=== PATIENT | male | born 1960 | race Caucasian/White ===

== ENCOUNTER 2021-11-11 02:04 | Inpatient (IN) ==
[2021-11-11] MEDS ORDERED: Cefepime HCl 2,000 MG in 0.9 % Sodium Chloride Mini Bag 100 ML IVPB ONE (02:52)
[2021-11-11] MEDS ORDERED: Ipratropium/Albuterol Neb 3 ML IH ONE (02:54)
[2021-11-11] MEDS ORDERED: Ringers Solution, Lactated 1,000 ML IVC ONE ×2 (02:56→03:48)
[2021-11-11 02:57] LABS: Basophils % 0.3 %; Eosinophils % 0.1 %; Hematocrit 47.1 % (37.5-50.1); Hemoglobin 15.2 g/dL (12.9-16.9); Immature Granulocytes % 0.5 % (0-4); Mean Corpuscular HGB Conc 32.3 g/dL (31.6-35.5); Mean Corpuscular Hemoglobin 27.2 pg (28.0-33.3); Mean Corpuscular Volume 84.4 fL (83.0-100.0); Mean Platelet Volume 8.9 fL (9.4-12.4); Monocytes # 0.9 K/mcL (0.0-1.3); Monocytes % 6.7 %; Neutrophils # 10.9 K/mcL (1.6-8.9); Platelet Count 447 K/mcL (140-400); Red Blood Count 5.58 M/mcL (4.19-5.50); Red Cell Distribution Width 14.2 % (11.5-14.5); Segmented Neutrophils % 84.4 %; White Blood Count 12.9 K/mcL (4.3-11.1)
[2021-11-11] MEDS ORDERED: Vancomycin 1,250 MG/262.5 ML IV.SOLN IVPB ONE (03:00)
[2021-11-11] MEDS ORDERED: Vancomycin (wt based) 1,000 MG VIAL IV ONE (03:00)
[2021-11-11] MEDS ORDERED: Levalbuterol Neb 1.25 MG/3 ML ONE (03:46)
[2021-11-11] MEDS: Levalbuterol Neb 1.25 MG/3 ML IH ONE (03:55)
[2021-11-11 04:00] LABS: BUN/Creatinine Ratio 24 (6-26); Blood Urea Nitrogen 30 mg/dL (8-23); Calcium 9.6 mg/dL (8.6-10.3); Carbon Dioxide 24 mEq/L (23-29); Chloride 93 mEq/L (98-107); Glucose 134 mg/dL (70-105); Osmolality,Calculated 284 (280-300); Potassium 3.7 mEq/L (3.5-5.1); Sodium 133 mEq/L (136-145); Troponin I 0.19 ng/mL (< 0.04); eGFR For African Americans > 60 (> 60); eGFR For Non-African Americans 58 (> 60)
[2021-11-11 04:00] LABS: VBG HCO3 27 mEq/L (21-27); VBG PCO2 46 mmHg (41-51); VBG PH 7.38 pH Units (7.32-7.42); VBG PO2 69 mmHg (25-50)
[2021-11-11] MEDS ORDERED: Isovue-370 500 ML BOTTLE IVP ONE (04:09)
[2021-11-11] MEDS ORDERED: *HR* Heparin 5,000 UNIT/ML VIAL IVP ONE (04:27)
[2021-11-11] MEDS ORDERED: *HR* Heparin 5,000 UNIT/ML VIAL IVP PRN ×2 (04:27)
[2021-11-11] MEDS ORDERED: Aspirin 325 MG TABLET PO ONE (04:27)
[2021-11-11 04:39] LABS: Influenza A PCR Negative (Negative); Influenza B PCR Negative (Negative); Resp. Syncytial Virus PCR Negative (Negative)
[2021-11-11 04:43] LABS: SARS-CoV-2 by PCR (In House) Negative (Negative)
[2021-11-11] MEDS: Heparin 25,000UNIT/250ML 1/2NS 25,000 UNIT/250 ML IV.SOLN IVC SCH (04:53)
[2021-11-11] MEDS ORDERED: Naloxone 0.4 MG/ML INJ IVP PRN (05:22)
[2021-11-11] MEDS ORDERED: Melatonin 3 MG TABLET PO PRN (05:22)
[2021-11-11] MEDS ORDERED: methylPREDNISolone 125 MG/2 ML VIAL IVP ONE ×2 (05:25→09:22)
[2021-11-11] MEDS ORDERED: *HR* LORazepam 2 MG/ML VIAL IVP ONE (05:33)
[2021-11-11] MEDS ORDERED: Dextrose 4 GM Chewable Tablets PO PRN ×2 (05:35)
[2021-11-11] MEDS ORDERED: D5% in Water 1,000 ML IVC PRN (05:35)
[2021-11-11] MEDS ORDERED: *HR* Dextrose 50 % in Water (Syg) 50 ML SYRINGE IVP PRN (05:35)
[2021-11-11] MEDS ORDERED: Ondansetron 4 MG/2 ML VIAL IVP PRN (06:00)
[2021-11-11] MEDS: Levalbuterol Neb 1.25 MG/3 ML IH SCH ×4 (06:23→20:25)
[2021-11-11] MEDS ORDERED: Perflutren Lipid Microsphere 1.3 ML in 0.9 % Sodium Chloride 8.7 ML IVP PRN (06:28)
[2021-11-11 07:28] LABS: Chol/HDL Ratio 4.2 (0-4.9); Phosphorous 3.4 mg/dL (2.7-4.5)
[2021-11-11 07:34] LABS: Hematocrit 41.6 % (37.5-50.1); Mean Corpuscular HGB Conc 32.5 g/dL (31.6-35.5); Mean Corpuscular Hemoglobin 27.4 pg (28.0-33.3); Mean Corpuscular Volume 84.4 fL (83.0-100.0); Mean Platelet Volume 9.5 fL (9.4-12.4); Platelet Count 405 K/mcL (140-400); Red Blood Count 4.93 M/mcL (4.19-5.50); Red Cell Distribution Width 14.3 % (11.5-14.5); White Blood Count 14.7 K/mcL (4.3-11.1)
[2021-11-11 07:38] LABS: Heparin anti-factor XA UFH 0.2 IU/mL (0.30-0.70); INR 1.3; Prothrombin Time 14.5 Seconds (9.4-12.1)
[2021-11-11 07:41] LABS: Activated Partial Thrombo Time 31.6 Seconds (26.0-36.0)
[2021-11-11 07:42] LABS: Hemoglobin 13.5 g/dL (12.9-16.9)
[2021-11-11] MEDS ORDERED: Furosemide 20 MG/2 ML VIAL IVP ONE (07:45)
[2021-11-11] MEDS ORDERED: Metoprolol XL (24 HR) Succ 25 MG TAB.ER.24H PO SCH (09:00)
[2021-11-11] MEDS ORDERED: levETIRAcetam 250 MG TABLET PO SCH (09:00)
[2021-11-11] MEDS ORDERED: Pantoprazole 40 MG VIAL IVP SCH (09:00)
[2021-11-11] MEDS: Budesonide/Formoterol 160/4.5 1 PUFF INH IH SCH ×2 (10:47→20:25)
[2021-11-11] MEDS: Acetylcysteine 10% 2 ML INHSOL IH SCH ×3 (10:47→20:25)
[2021-11-11 11:06] LABS: ABG Base Excess 1 mEq/L (-2 to 3); ABG HCO3 24 mEq/L (21-27); ABG Oxygen Saturation 97 % (95-98); ABG PCO2 36 mmHg (35-45); ABG PH 7.45 pH Units (7.32-7.45); ABG PO2 90 mmHg (85-104); ABG TCO2 26 mEq/L (20-26); Blood Gas VT 500 cc
[2021-11-11] MEDS: DilTIAZem 50 MG/50 ML IV.SOLN IVC SCH ×3 (11:41→23:35)
[2021-11-11] MEDS: Nicotine 21 MG PATCH.TD24 TD SCH (12:19)
[2021-11-11] MEDS: Lactobacillus 1 EACH CAP.SPRINK PO SCH ×2 (12:19→21:45)
[2021-11-11] MEDS: Cholecalciferol (D-3) 1,000 UNIT (25MCG) TABLET PO SCH (12:20)
[2021-11-11] MEDS: levETIRAcetam 750 MG in 0.9 % Sodium Chloride 100 ML IVPB SCH ×2 (12:30→21:44)
[2021-11-11] MEDS: methylPREDNISolone 125 MG/2 ML VIAL IVP SCH ×2 (15:30→21:43)
[2021-11-11] MEDS: Cefepime HCl 2,000 MG in 0.9 % Sodium Chloride 10 ML IVP SCH (15:31)
[2021-11-11] MEDS: Acetaminophen 325 MG TABLET PO PRN (16:29)
[2021-11-12] MEDS: Cefepime HCl 2,000 MG in 0.9 % Sodium Chloride 10 ML IVP SCH (03:08)
[2021-11-12] MEDS: Levalbuterol Neb 1.25 MG/3 ML IH SCH ×4 (05:05→20:02)
[2021-11-12] MEDS: Acetylcysteine 10% 2 ML INHSOL IH SCH ×4 (05:06→20:36)
[2021-11-12] MEDS: methylPREDNISolone 125 MG/2 ML VIAL IVP SCH ×3 (06:26→21:42)
[2021-11-12] MEDS ORDERED: Vancomycin 1,250 MG/262.5 ML IV.SOLN IVPB SCH (07:00)
[2021-11-12] MEDS: Heparin 25,000UNIT/250ML 1/2NS 25,000 UNIT/250 ML IV.SOLN IVC SCH (09:06)
[2021-11-12] MEDS ORDERED: Piperacillin/Tazobactam 3.375 GM VIAL ONE (09:11)
[2021-11-12] MEDS: Cholecalciferol (D-3) 1,000 UNIT (25MCG) TABLET PO SCH (09:45)
[2021-11-12] MEDS: Lactobacillus 1 EACH CAP.SPRINK PO SCH ×2 (09:45→19:30)
[2021-11-12] MEDS: Aspirin 81 MG TAB.CHEW PO SCH (09:45)
[2021-11-12] MEDS: Nicotine 21 MG PATCH.TD24 TD SCH (09:45)
[2021-11-12] MEDS: Piperacillin/Tazobactam 3.375 GM in 0.9 % Sodium Chloride Mini Bag 100 ML IVPB SCH ×2 (09:47→17:39)
[2021-11-12] MEDS: levETIRAcetam 750 MG in 0.9 % Sodium Chloride 100 ML IVPB SCH (09:48)
[2021-11-12] MEDS: Budesonide/Formoterol 160/4.5 1 PUFF INH IH SCH ×2 (10:59→20:02)
[2021-11-12 11:19] LABS: BUN/Creatinine Ratio 24 (6-26); Blood Urea Nitrogen 27 mg/dL (8-23); Calcium 8.9 mg/dL (8.6-10.3); Carbon Dioxide 25 mEq/L (23-29); Chloride 99 mEq/L (98-107); Glucose 124 mg/dL (70-105); Osmolality,Calculated 285 (280-300); Phosphorous 3.3 mg/dL (2.7-4.5); Potassium 3.7 mEq/L (3.5-5.1); Sodium 134 mEq/L (136-145); eGFR For African Americans > 60 (> 60); eGFR For Non-African Americans > 60 (> 60)
[2021-11-12 11:25] LABS: Basophils % 0.1 %; Hematocrit 37.6 % (37.5-50.1); Hemoglobin 12.2 g/dL (12.9-16.9); Immature Granulocytes % 0.5 % (0-4); Lymphocytes # 0.5 K/mcL (0.6-4.6); Lymphocytes % 2.8 %; Mean Corpuscular HGB Conc 32.4 g/dL (31.6-35.5); Mean Corpuscular Hemoglobin 27.3 pg (28.0-33.3); Mean Corpuscular Volume 84.1 fL (83.0-100.0); Mean Platelet Volume 9.8 fL (9.4-12.4); Monocytes # 0.4 K/mcL (0.0-1.3); Monocytes % 2.3 %; Neutrophils # 17.5 K/mcL (1.6-8.9); Platelet Count 426 K/mcL (140-400); Red Blood Count 4.47 M/mcL (4.19-5.50); Red Cell Distribution Width 14.6 % (11.5-14.5); Segmented Neutrophils % 94.3 %; White Blood Count 18.5 K/mcL (4.3-11.1)
[2021-11-12] MEDS: DilTIAZem 50 MG/50 ML IV.SOLN IVC SCH (12:27)
[2021-11-12] MEDS: Acetaminophen 325 MG TABLET PO PRN (12:38)
[2021-11-12] MEDS ORDERED: DilTIAZem CD (24hr) 180 MG CAP.ER.24H PO ONE (13:20)
[2021-11-12] MEDS: levETIRAcetam 250 MG TABLET PO SCH ×2 (13:29→19:30)
[2021-11-12] MEDS ORDERED: Morphine Sulfate Oral CONC 10 MG/0.5 ML ORAL.SYG SL PRN (14:49)
[2021-11-13] MEDS: Piperacillin/Tazobactam 3.375 GM in 0.9 % Sodium Chloride Mini Bag 100 ML IVPB SCH ×3 (00:54→17:15)
[2021-11-13 03:31] LABS: Basophils % 0.1 %; Hematocrit 33.1 % (37.5-50.1); Hemoglobin 10.7 g/dL (12.9-16.9); Immature Granulocytes % 0.7 % (0-4); Lymphocytes # 0.5 K/mcL (0.6-4.6); Lymphocytes % 2.8 %; Mean Corpuscular HGB Conc 32.3 g/dL (31.6-35.5); Mean Corpuscular Hemoglobin 27.4 pg (28.0-33.3); Mean Corpuscular Volume 84.9 fL (83.0-100.0); Mean Platelet Volume 9.1 fL (9.4-12.4); Monocytes # 0.5 K/mcL (0.0-1.3); Monocytes % 2.7 %; Neutrophils # 16.5 K/mcL (1.6-8.9); Platelet Count 380 K/mcL (140-400); Red Cell Distribution Width 14.6 % (11.5-14.5); Segmented Neutrophils % 93.7 %; White Blood Count 17.6 K/mcL (4.3-11.1)
[2021-11-13 03:56] LABS: A.calcoaceticus-baumannii cplx Not Detected (Not Detect); Bacteroides fragilis by PCR Not Detected (Not Detect); Candida albicans by PCR Not Detected (Not Detect); Candida auris by PCR Not Detected (Not Detect); Candida glabrata by PCR Not Detected (Not Detect); Candida krusei by PCR Not Detected (Not Detect); Candida parapsilosis by PCR Not Detected (Not Detect); Candida tropicalis by PCR Not Detected (Not Detect); Crypto. neoformans/gattii PCR Not Detected (Not Detect); Enterobacter cloacae Cmplx PCR Not Detected (Not Detect); Enterobacterales by PCR Not Detected (Not Detect); Enterococcus faecalis by PCR Not Detected (Not Detect); Enterococcus faecium by PCR Not Detected (Not Detect); Escherichia coli by PCR Not Detected (Not Detect); Klebs. pneumoniae group by PCR Not Detected (Not Detect); Klebsiella aerogenes by PCR Not Detected (Not Detect); Klebsiella oxytoca by PCR Not Detected (Not Detect); Proteus by PCR Not Detected (Not Detect); Pseudomonas aeruginosa by PCR Not Detected (Not Detect); Salmonella species by PCR Not Detected (Not Detect); Serratia marcescens by PCR Not Detected (Not Detect); Staph epidermidis by PCR Not Detected (Not Detect); Staph lugdunensis by PCR Not Detected (Not Detect); Staphylococcus aureus by PCR Not Detected (Not Detect); Staphylococcus by PCR Not Detected (Not Detect); Stenotrophomonas maltophilia Not Detected (Not Detect); Streptococcus agalactiae(B)PCR Not Detected (Not Detect); Streptococcus by PCR Not Detected (Not Detect); Streptococcus pneumoniae PCR Not Detected (Not Detect); Streptococcus pyogenes (A) PCR Not Detected (Not Detect)
[2021-11-13 04:09] LABS: BUN/Creatinine Ratio 25 (6-26); Blood Urea Nitrogen 27 mg/dL (8-23); Calcium 8.4 mg/dL (8.6-10.3); Carbon Dioxide 26 mEq/L (23-29); Chloride 101 mEq/L (98-107); Glucose 125 mg/dL (70-105); Osmolality,Calculated 287 (280-300); Phosphorous 2.8 mg/dL (2.7-4.5); Potassium 3.4 mEq/L (3.5-5.1); Sodium 135 mEq/L (136-145); eGFR For African Americans > 60 (> 60); eGFR For Non-African Americans > 60 (> 60)
[2021-11-13] MEDS: Levalbuterol Neb 1.25 MG/3 ML IH SCH ×4 (04:14→20:37)
[2021-11-13] MEDS: Acetylcysteine 10% 2 ML INHSOL IH SCH ×4 (04:15→20:46)
[2021-11-13] MEDS: methylPREDNISolone 125 MG/2 ML VIAL IVP SCH (06:02)
[2021-11-13] MEDS: *HR* Enoxaparin 40 MG/0.4 ML SYRINGE SQ SCH (06:03)
[2021-11-13] MEDS: Budesonide/Formoterol 160/4.5 1 PUFF INH IH SCH ×2 (09:50→20:46)
[2021-11-13] MEDS: Cholecalciferol (D-3) 1,000 UNIT (25MCG) TABLET PO SCH (10:17)
[2021-11-13] MEDS: Aspirin 81 MG TAB.CHEW PO SCH (10:17)
[2021-11-13] MEDS: Lactobacillus 1 EACH CAP.SPRINK PO SCH ×2 (10:17→21:18)
[2021-11-13] MEDS: levETIRAcetam 250 MG TABLET PO SCH ×2 (10:18→21:17)
[2021-11-13] MEDS: DilTIAZem CD (24hr) 180 MG CAP.ER.24H PO SCH (10:18)
[2021-11-13] MEDS: Nicotine 21 MG PATCH.TD24 TD SCH (10:18)
[2021-11-13] MEDS: Folic Acid 1 MG TABLET PO SCH (10:18)
[2021-11-13] MEDS: traZODone 50 MG TABLET PO SCH (10:26)
[2021-11-13] MEDS: MethylPREDNISolone 40 MG/ML VIAL IVP SCH ×2 (12:21→23:02)
[2021-11-13] MEDS: Acetaminophen 325 MG TABLET PO PRN (15:03)
[2021-11-14 00:57] VITALS: O2SAT 100
[2021-11-14 01:11] VITALS: TEMP 97.6
[2021-11-14] MEDS: Piperacillin/Tazobactam 3.375 GM in 0.9 % Sodium Chloride Mini Bag 100 ML IVPB SCH ×2 (01:11→08:55)
[2021-11-14] MEDS: Acetylcysteine 10% 2 ML INHSOL IH SCH ×2 (03:44→07:20)
[2021-11-14] MEDS: Levalbuterol Neb 1.25 MG/3 ML IH SCH ×2 (03:44→07:20)
[2021-11-14] MEDS: *HR* Enoxaparin 40 MG/0.4 ML SYRINGE SQ SCH (05:38)
[2021-11-14] MEDS: Budesonide/Formoterol 160/4.5 1 PUFF INH IH SCH (07:20)
[2021-11-14 08:06] LABS: Basophils % 0.1 %; Hematocrit 38.5 % (37.5-50.1); Hemoglobin 12.2 g/dL (12.9-16.9); Immature Granulocytes % 0.7 % (0-4); Lymphocytes # 0.4 K/mcL (0.6-4.6); Lymphocytes % 2.3 %; Mean Corpuscular HGB Conc 31.7 g/dL (31.6-35.5); Mean Corpuscular Hemoglobin 27.3 pg (28.0-33.3); Mean Corpuscular Volume 86.1 fL (83.0-100.0); Mean Platelet Volume 8.7 fL (9.4-12.4); Monocytes # 0.7 K/mcL (0.0-1.3); Monocytes % 3.4 %; Neutrophils # 17.9 K/mcL (1.6-8.9); Platelet Count 394 K/mcL (140-400); Red Blood Count 4.47 M/mcL (4.19-5.50); Red Cell Distribution Width 14.7 % (11.5-14.5); Segmented Neutrophils % 93.5 %; White Blood Count 19.1 K/mcL (4.3-11.1)
[2021-11-14 08:26] LABS: Magnesium 2.1 mg/dL (1.6-2.6); Phosphorous 3.2 mg/dL (2.7-4.5)
[2021-11-14 08:49] LABS: BUN/Creatinine Ratio 25 (6-26); Blood Urea Nitrogen 26 mg/dL (8-23); Carbon Dioxide 26 mEq/L (23-29); Chloride 102 mEq/L (98-107); Glucose 114 mg/dL (70-105); Osmolality,Calculated 286 (280-300); Potassium 4.6 mEq/L (3.5-5.1); Sodium 135 mEq/L (136-145); eGFR For African Americans > 60 (> 60); eGFR For Non-African Americans > 60 (> 60)
[2021-11-14] MEDS: DilTIAZem CD (24hr) 180 MG CAP.ER.24H PO SCH (08:49)
[2021-11-14] MEDS: traZODone 50 MG TABLET PO SCH (08:49)
[2021-11-14] MEDS: Lactobacillus 1 EACH CAP.SPRINK PO SCH (08:49)
[2021-11-14] MEDS: levETIRAcetam 250 MG TABLET PO SCH (08:49)
[2021-11-14] MEDS: Cholecalciferol (D-3) 1,000 UNIT (25MCG) TABLET PO SCH (08:49)
[2021-11-14] MEDS: Folic Acid 1 MG TABLET PO SCH (08:49)
[2021-11-14] MEDS: Nicotine 21 MG PATCH.TD24 TD SCH (08:50)
[2021-11-14] MEDS: Aspirin 81 MG TAB.CHEW PO SCH (08:50)
[2021-11-14] MEDS: MethylPREDNISolone 40 MG/ML VIAL IVP SCH (10:50)
[2021-11-14 11:02] VITALS: BP 145/88; PULSE 120
[2021-11-15 11:14] LABS: Mycoplasma pneumoniae IgG 2.53 U/L (<=0.09)
== END 2021-11-14 12:30 | disposition hospice, home (50) | DRG 139 ==
LOC: SUATTDRO → EMEROOARM 02:04 → 3NENU 02:04 → SUATTDRO 04:41 → 3NENU 06:05
PROVIDERS: ADMIT Internal Medicine; ATTEND Internal Medicine